=== PATIENT | female | born 1985 | race Two or more races ===

== ENCOUNTER 2018-10-29 08:49 | Inpatient (IN) | payer OTHER ==
[~2018-10-29] VITALS: Ht 162.6 cm; Wt 88.5 kg
[~2018-10-29 08:49] MED LIST: PRENATAL; [UNRECOGNIZED DRUG - OTHER]
== END 2018-11-16 15:08 | disposition home or self-care (01) | DRG 807 ==
LOC: OB/GYN 11-05 13:30 → LDR 11-14 05:34 → OB/GYN 11-14 14:01
PROVIDERS: ADMIT Specialist
PROC: 10E0XZZ Delivery of Products of Conception, External Approach (ICD-10-PCS; principal; 2018-11-14)
PROC: 0HQ9XZZ Repair Perineum Skin, External Approach (ICD-10-PCS; 2018-11-14)
PROC: 3E033VJ Introduction of Other Hormone into Peripheral Vein, Percutaneous Approach (ICD-10-PCS; 2018-11-14)
PROC: 4A1HXCZ Monitoring of Products of Conception, Cardiac Rate, External Approach (ICD-10-PCS; 2018-11-14)
DX: O70.0 First degree perineal laceration during delivery (principal); Z37.0 Single live birth; Z3A.39 39 weeks gestation of pregnancy

== ENCOUNTER 2022-12-06 14:21 | Outpatient (CLI) | payer OTHER | END 2022-12-06 14:40 | disposition home or self-care (01) | LOC: MRI 14:21 | PROVIDERS: ATTEND Specialist | DX: M25.562 Pain in left knee (principal) | CPT/HCPCS: 73718 ==

== ENCOUNTER 2023-05-13 13:36 | Outpatient (CLI) | payer OTHER | END 2023-05-13 13:45 | disposition home or self-care (01) | LOC: RAD 13:36 | PROVIDERS: ATTEND Orthopaedic Surgery | DX: R07.9 Chest pain, unspecified (principal) ==

== ENCOUNTER 2024-10-21 12:49 | Outpatient (CLI) | payer OTHER ==
[~2024-10-21 12:49] MED LIST changes: +DICLOFENAC POTA50 MG PO; +MEDROLPACK PO; +METHOCARBAMOL500 MG PO
== END 2024-10-21 12:55 | disposition home or self-care (01) ==
LOC: RAD 12:49
DX: M99.01 Segmental and somatic dysfunction of cervical region (principal); M99.02 Segmental and somatic dysfunction of thoracic region; M99.03 Segmental and somatic dysfunction of lumbar region; M99.04 Segmental and somatic dysfunction of sacral region; M99.05 Segmental and somatic dysfunction of pelvic region

== ENCOUNTER 2024-12-14 11:57 | Emergency (ER) | payer OTHER ==
[~2024-12-14] VITALS: Ht 162.6 cm; Wt 87.1 kg
[2024-12-14 12:23] VITALS: O2SAT 98
[2024-12-14] MEDS ORDERED: KETOROLAC TROMETHAMINE 60 MG VIAL IM ONE (13:30)
[2024-12-14] MEDS ORDERED: BUTALB/ACETAMINOPHEN/CAFFEINE 1 TAB TABLET PO ONE (13:30)
[2024-12-14] MEDS ORDERED: DEXAMETHASONE SODIUM PHOSPHATE 4 MG/ML VIAL IM ONE (13:30)
[2024-12-14] MEDS ORDERED: BUTALBIT-ACETA1 EACH PO (14:18)
[2024-12-14 14:23] VITALS: BP 111/76
== END 2024-12-14 14:24 | disposition home or self-care (01) ==
LOC: ER 11:57
DX: R51.9 Headache, unspecified (principal); Z91.013 Allergy to seafood